=== PATIENT | male | born 1940 | race Hispanic/Latino ===

== ENCOUNTER 2019-10-25 20:08 | Emergency (ER) | payer OTHER ==
[2019-10-25] MEDS ORDERED: Ventolin HFA Inhaler 60 PUFF INHALER ONE (20:55)
== END 2019-10-25 22:19 ==
LOC: NAV ERS 20:08
DX: U07.1 COVID-19 (principal); J44.1 Chronic obstructive pulmonary disease with (acute) exacerbation; Z79.899 Other long term (current) drug therapy; Z87.891 Personal history of nicotine dependence
CPT/HCPCS: 99284

== ENCOUNTER 2021-01-01 13:22 | Emergency (ER) | payer OTHER ==
[2021-01-01] MEDS ORDERED: Dexamethasone 4 mg/ml Vial ONE (13:48)
[2021-01-01] MEDS ORDERED: Ipratropium Bromide 2.5 ml Neb ONE (13:49)
[2021-01-01] MEDS ORDERED: Albuterol Sulfate 2.5 mg/0.5 ml Neb ONE ×2 (13:49→13:50)
== END 2021-01-01 14:52 ==
LOC: NAV ERS 13:22
DX: J44.1 Chronic obstructive pulmonary disease with (acute) exacerbation (principal); T63.421A Toxic effect of venom of ants, accidental (unintentional), initial encounter; Z87.891 Personal history of nicotine dependence; Z79.899 Other long term (current) drug therapy
CPT/HCPCS: J1100; J7611; J7620

== ENCOUNTER 2021-01-01 17:44 | Emergency (ER) | payer OTHER ==
[2021-01-01] MEDS ORDERED: Albuterol Sulfate 2.5 mg/0.5 ml Neb ONE ×2 (18:18→22:24)
[2021-01-01 19:16] LABS: #Lymphocytes 0.6 thou/uL (1.20-3.40); #Monocytes 0.3 thou/uL (0.11-0.59); #Neutrophils 4.4 thou/uL (1.40-6.50); %Basophils 0.1 % (0.0-1.0); %Lymphocytes 12.1 % (21.0-51.0); %Monocytes 5.2 % (0.0-10.0); %Neutrophils 82.6 % (42.0-75.0); Hemoglobin 12.2 g/dL (14.0-18.0); Mean Corpuscular HGB CONC 31.5 g/dL (32.0-36.0); Mean Corpuscular Volume 82.4 fL (78.0-98.0); Platelet Count 171 thou/uL (130-400); RBC Distribution Width 12.7 % (11.5-14.5); Red Blood Cell (RBC) Count 4.71 mill/uL (4.70-6.10); White Blood Cell (WBC) Count 5.3 thou/uL (4.8-10.8)
[2021-01-01 19:30] LABS: Anion Gap 17 mmol/L (10-20); BUN (Urea Nitrogen) 16 mg/dL (8.4-25.7); Calc. Creatinine Clearance 0 mL/min (70-130); Calcium 9.3 mg/dL (7.8-10.44); Carbon Dioxide 25 mmol/L (23-31); Chloride 93 mmol/L (98-107); Glucose 177 mg/dL (83-110); Potassium 4.2 mmol/L (3.5-5.1); Sodium 131 mmol/L (136-145)
[2021-01-01] MEDS ORDERED: Ipratropium Bromide 2.5 ml Neb ONE (22:24)
[2021-01-01] MEDS ORDERED: Azithromycin 250 MG TAB ONE ×2 (23:03→23:04)
== END 2021-01-01 23:12 | disposition home or self-care (01) ==
LOC: NAV ERS 17:44
DX: J18.9 Pneumonia, unspecified organism (principal); J44.1 Chronic obstructive pulmonary disease with (acute) exacerbation; Z87.891 Personal history of nicotine dependence; Z79.899 Other long term (current) drug therapy
CPT/HCPCS: 36415; 71045; 80048; 85025; 94640; J1100; J7611; J7620